=== PATIENT | male | born 1995 | race Caucasian/White ===

== ENCOUNTER 2016-10-31 19:54 | Emergency (ER) | payer SELFPAY ==
[~2016-10-31] VITALS: Ht 177.8 cm; Wt 100.7 kg
[2016-10-31] MEDS ORDERED: LIDOCAINE 1%, 10ML INFIL ONE (20:30)
[2016-10-31] MEDS ORDERED: LIDOCAINE 1%, 20ML ONE (20:38)
[2016-10-31] MEDS ORDERED: SILVER NITRATE STICK TP ONE ×2 (21:18→21:30)
[2016-10-31 21:27] VITALS: BP 126/77
== END 2016-10-31 21:29 | disposition home or self-care (01) ==
LOC: ED 21:20
DX: L60.0 Ingrowing nail (principal); L03.031 Cellulitis of right toe; Z87.891 Personal history of nicotine dependence
CPT/HCPCS: 10060; 99283; J3490

== ENCOUNTER 2017-07-17 14:15 | Emergency (ER) | payer OTHER ==
[~2017-07-17] VITALS: Ht 180.3 cm; Wt 108.9 kg
[2017-07-17 14:16] VITALS: BP 146/80
[2017-07-17] MEDS ORDERED: SILVER NITRATE STICK TP ONE ×2 (14:45→15:00)
[2017-07-17] MEDS ORDERED: LIDOCAINE 1%, 10ML ONE (14:45)
[2017-07-17] MEDS ORDERED: LIDOCAINE 1%, 20ML SQ ONE (15:00)
[2017-07-17] MEDS ORDERED: BACITRACIN ZINC OINT 500U/GM, 0.9 GM ONE (15:52)
== END 2017-07-17 16:15 | disposition home or self-care (01) ==
LOC: ED 16:09
DX: L60.0 Ingrowing nail (principal)
CPT/HCPCS: 11730; 99283

== ENCOUNTER 2017-12-01 16:43 | Emergency (ER) | payer OTHER ==
[~2017-12-01] VITALS: Ht 177.8 cm; Wt 106.0 kg
[2017-12-01 16:48] VITALS: BP 116/73
[2017-12-01] MEDS ORDERED: ACETAMINOPHEN 325 MG TABLET ONE (17:54)
[2017-12-01] MEDS ORDERED: LIDOCAINE-MPF 1%, 5ML ONE ×2 (17:54→17:58)
[2017-12-01] MEDS ORDERED: ACETAMINOPHEN 325 MG TABLET PO ONE (18:00)
[2017-12-01] MEDS ORDERED: LIDOCAINE 1%, 10ML INFIL ONE (18:00)
== END 2017-12-01 19:02 | disposition home or self-care (01) ==
LOC: ED 19:00
DX: L60.0 Ingrowing nail (principal)
CPT/HCPCS: 11730; 99283; J3490; 11750; 99284